=== PATIENT | female | born 1985 ===

== ENCOUNTER 2017-03-25 20:09 | Emergency (ER) | payer SELFPAY ==
[2017-03-25 20:19] VITALS: BP 105/66; PULSE 76; TEMP 98.2; BMI 22.6
--- NOTE | 2017-03-25 20:45 | PDOC ---
History of Present Illness - General History Source: Patient, Family Exam Limitations: No Limitations - History of Present Illness Initial Comments: 03/25/17 20:50 The patient is a 31 year old female presenting with family members, who presents to the emergency department with low back pain after lifting a heavy object today. She describes her back pain as ranging from mild to moderate, without radiation and notes that the pain makes it difficult for her to ambulate. She denies any kind of fall, loss of consciousness or any other kind of pains. She denies taking anything for the pain and notes that she currently does not want any medications for the pain. The patient denies chest pain, shortness of breath, headache and dizziness. PAST MEDICAL HISTORY: no significant history PAST SURGICAL HISTORY: no significant history FAMILY HISTORY: no pertinent history SOCIAL HISTORY: Pt lives with family and is employed. MEDICATIONS: reviewed ALLERGIES: As per nursing notes General: No fevers or chills, no weakness, no weight loss HEENT: No change in vision. No sore throat,. No ear pain CardioVascular: No chest pain or shortness of breath Respiratory:No cough, or wheezing. Gastrointestinal: no nausea, vomiting, diarrhea or constipation, No rectal bleeding Genitourinary: No dysuria, hematuria, or frequency Musculoskeletal: (+) Lower back pain. No joint or muscle pain or swelling Neurologic: No headache, vertigo, dizziness or loss of consciousness Psychiatric: nor depression Skin: No rashes or easy bruising Endocrine: no increased thirst or abnormal weight change Allergic: no skin or latex allergy All other systems reviewed and normal GENERAL: The patient is awake, alert, and fully oriented, in no acute distress. HEAD: Normal with no signs of trauma. EYES: Pupils equal, round and reactive to light, extraocular movements intact, sclera anicteric, conjunctiva clear. EXTREMITIES: Normal range of motion, no edema. MUSCULOSKELETAL: (+) Tenderness on palpation of the coccyx. Lumbar and sacral spine are nontender. No hip or buttocks tenderness. No paraspinal tenderness. NEUROLOGICAL: Normal speech, normal gait. PSYCH: Normal mood, normal affect. SKIN: Warm, Dry, normal turgor, no rashes or lesions noted. <Zachary June - Last Filed: 03/25/17 20:50> - History of Present Illness Initial Comments: A portion of this note was documented by scribe services under my direction. I have reviewed the details of the note, within reason, and agree with the documentation. The case summary and management plan written by me. X-ray coccyx no acute fracture or pathology Assessment and plan: This is a 31-year-old female who developed pain in her area of her coccyx after lifting something heavy at work. Patient denies falling or any trauma to the coccyx. Patient said pain was not bad enough that she wanted anything for pain in the emergency room X-ray was done and negative for any acute pathology Patient told she should take Tylenol or Motrin as needed for the pain also she should purchase a inflatable donut type cushion that she can use when sitting. And follow-up with her primary care DrRex if not improved in 4-5 days 03/25/17 21:13 <Philipp Philip I - Last Filed: 03/25/17 21:15> - General Chief Complaint: Pain, Acute Stated Complaint: LOWER BACK PAIN Time Seen by Provider: 03/25/17 20:25 Past History <Zachary June - Last Filed: 03/25/17 20:50> - Past Medical History COPD: No Other medical history: DENIES - Suicide/Smoking/Psychosocial Hx Smoking History: Never smoked Hx Alcohol Use: No Drug/Substance Use Hx: No Substance Use Type: None <Philipp Philip I - Last Filed: 03/25/17 21:15> - Past Medical History Allergies/Adverse Reactions: Allergies Allergy/AdvReac Type Severity Reaction Status Date / Time No Known Allergies Allergy Verified 03/25/17 20:10 Home Medications: Ambulatory Orders NK [No Known Home Medication] 03/25/17 *Physical Exam - Vital Signs Last Vital Signs Temp Pulse Resp BP Pulse Ox 98.2 F 76 18 105/66 100 03/25/17 20:10 03/25/17 20:10 03/25/17 20:10 03/25/17 20:10 03/25/17 20:10 <Zachary June - Last Filed: 03/25/17 20:50> - Vital Signs Last Vital Signs Temp Pulse Resp BP Pulse Ox 98.2 F 76 18 105/66 100 03/25/17 20:10 03/25/17 20:10 03/25/17 20:10 03/25/17 20:10 03/25/17 20:10 <Philipp Philip I - Last Filed: 03/25/17 21:15> ED Treatment Course - ADDITIONAL ORDERS Additional order review: Laboratory Results 03/25/17 20:16 Urine HCG, Qual Negative <Zachary June - Last Filed: 03/25/17 20:50> - ADDITIONAL ORDERS Additional order review: Laboratory Results 03/25/17 20:16 Urine HCG, Qual Negative <Philipp Philip I - Last Filed: 03/25/17 21:15> *DC/Admit/Observation/Transfer - Attestations Scribe Attestion: 03/25/17 20:50 Documentation prepared by Zachary June, acting as medical reimbursement specialist for Philipp Philip MD <Zachary June - Last Filed: 03/25/17 20:50> - Discharge Dispostion Admit: No <Philipp Philip I - Last Filed: 03/25/17 21:15> Diagnosis at time of Disposition: Pain in the coccyx - Discharge Dispostion Disposition: HOME Condition at time of disposition: Stable - Patient Instructions Additional Instructions: For the pain take Tylenol or Motrin as directed on the bottle. Purchase a donut-type pillow to use when sitting. Return to the emergency department immediately with ANY new, persistent or worsening symptoms. Continue any medications as previously prescribed by your physician. You should follow up with your primary doctor as soon as possible regarding today's emergency department visit. . Please make sure your doctor reviews the results of your emergency evaluation. Thank you for coming to the Emergency Department today for your care. It was a pleasure to see you today. Please note that your evaluation is INCOMPLETE until you follow-up with your doctor.
== END 2017-03-25 21:22 | disposition home or self-care (01) ==
LOC: FER 20:09
DX: M53.3 Sacrococcygeal disorders, not elsewhere classified (principal)
CPT/HCPCS: 72220-TC; 84703; 99282-25